=== PATIENT | female | born 1930 | race Caucasian/White ===

== ENCOUNTER 2016-08-13 11:33 | Day surgery (SDC) | payer MEDICARE, OTHER ==
[~2016-08-13] VITALS: Ht 162.6 cm; Wt 83.5 kg
[~2016-08-13 11:33] MED LIST: CARVEDILOL; HIGH BLOOD PRESSURE; LOSA1TAB3 PO
[2016-08-13 12:50] VITALS: Ht 162.6 cm; Wt 83.5 kg
[2016-08-13] MEDS ORDERED: CLOP300T15 PO (12:58)
[2016-08-13] MEDS ORDERED: SIMV-39 PO (12:58)
[2016-08-13] MEDS ORDERED: METF500T4 PO (12:58)
[2016-08-13 13:14] VITALS: BP 176/76; PULSE 57; RESP 16
[2016-08-13] MEDS ORDERED: LIDOCAINE 2% (SDV) 5 ML INJ ONE (13:18)
[2016-08-13] MEDS ORDERED: PROPOFOL 40 ML ONE (13:18)
--- NOTE | 2016-08-13 14:11 | GILP ---
DATE OF PROCEDURE: 08/13/2016 NAME OF PROCEDURE: Esophagogastroduodenoscopy. SURGEON: Robinson Ramirez MD PREOPERATIVE DIAGNOSIS: Abdominal pain. POSTOPERATIVE DIAGNOSES: 1. Gastritis with erosions. 2. Bile reflux gastritis. 3. 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 4. Gastroesophageal reflux disease. INDICATION FOR THE PROCEDURE: Ms. Mariel Epstein is an 86-year-old female patient who had upper ab dominal pain, not responding to therapy. The patient was scheduled for endoscopic examination for f urther evaluation. The procedure and possible complications are well explained to the patient. She understood and cons ented to the procedure. DESCRIPTION OF PROCEDURE: Under the influence of anesthesia, the gastroscope was carefully introduc ed into the esophagus, and under direct vision, it was advanced to the stomach and through the pylor us into the duodenal bulb and descending duodenum. FINDINGS: ESOPHAGUS: The patient had gastroesophageal reflux disease. STOMACH: She had bile reflux gastritis with erosions. She was also noted to have angiodysplastic l esions on the gastric antrum. DUODENUM: Normal. She tolerated the procedure very well, and there was no complication from the procedure. At the end of the procedures, she was awake with stable vital signs, and she was discharged home to the care o f her family. IMPRESSION: Please see postoperative diagnosis. PLAN: 1. Pantoprazole 40 mg p.o. q. a.m. 2. Carafate 1 g p.o. t.i.d. a.c. Dictated By: ROBINSON ROMERO/IVANNA Conf#: [id number] DID#: [id number]
== END 2016-08-13 16:37 | disposition home or self-care (01) ==
LOC: GIL 11:33
PROVIDERS: ATTEND Internal Medicine Gastroenterology
DX: K29.60 Other gastritis without bleeding (principal); K21.9 Gastro-esophageal reflux disease without esophagitis; E11.9 Type 2 diabetes mellitus without complications; I10 Essential (primary) hypertension; I25.10 Atherosclerotic heart disease of native coronary artery without angina pectoris
CPT/HCPCS: 82962